=== PATIENT | female | born 1970 | race Native Hawaiian/Other Pacific Islander ===

== ENCOUNTER 2017-08-25 18:22 | Emergency (ER) | payer OTHER ==
[~2017-08-25] VITALS: Ht 154.9 cm; Wt 99.8 kg
[~2017-08-25 18:22] MED LIST: HYDR50CA21 PO
[2017-08-25 19:57] LABS: PLATELET COUNT 217 K/uL (152-353)
[2017-08-25 20:06] LABS: POTASSIUM 3.3 mmol/L (3.6-5.2)
[2017-08-25 20:43] VITALS: BP 118/74; TEMP 97.9
== END 2017-08-25 20:44 | disposition home or self-care (01) ==
LOC: ED 18:22
PROVIDERS: Specialist
DX: M79.1 Myalgia (principal)
CPT/HCPCS: 36415; 80048; 84550; 85027; 85651; 99283

== ENCOUNTER 2019-01-18 15:18 | Emergency (ER) | payer OTHER ==
[~2019-01-18] VITALS: Ht 154.9 cm; Wt 117.5 kg
[2019-01-18 15:31] VITALS: TEMP 97.7
[2019-01-18 16:02] LABS: PLATELET COUNT 293 K/uL (152-353)
[2019-01-18 16:07] LABS: POTASSIUM 3.9 mmol/L (3.6-5.2); SODIUM 139 mmol/L (136-145)
[2019-01-18 17:20] VITALS: BP 133/60
== END 2019-01-18 17:20 | disposition home or self-care (01) ==
LOC: ED 15:18
PROVIDERS: Emergency Medicine
DX: R10.9 Unspecified abdominal pain (principal); K58.0 Irritable bowel syndrome with diarrhea; R14.3 Flatulence
CPT/HCPCS: 36415; 80053; 81000; 81025; 82150; 83690; 84484; 85027; 96374; 96375; 99284; J2270; J2405

== ENCOUNTER 2019-07-17 13:18 | Emergency (ER) | payer OTHER ==
[~2019-07-17] VITALS: Ht 154.9 cm; Wt 115.7 kg
[2019-07-17] MEDS ORDERED: TRAMADOL HYDROC50 MG PO (13:48)
[2019-07-17] MEDS ORDERED: OXYC5TAB53 PO (13:49)
[2019-07-17] MEDS ORDERED: IBU600 MG PO (13:49)
[2019-07-17 14:13] LABS: PLATELET COUNT 234 K/uL (152-353)
[2019-07-17 14:18] LABS: POTASSIUM 3.9 mmol/L (3.6-5.2)
[2019-07-17 16:06] VITALS: BP 135/69; TEMP 98.1
== END 2019-07-17 16:06 | disposition home or self-care (01) ==
LOC: ED 13:18
PROVIDERS: Family Medicine
DX: M51.36 Other intervertebral disc degeneration, lumbar region (principal); M79.2 Neuralgia and neuritis, unspecified; R73.9 Hyperglycemia, unspecified
CPT/HCPCS: 80053; 81000; 85027; 96372; 99283; J1885

== ENCOUNTER 2020-04-18 04:40 | Emergency (ER) | payer OTHER ==
[~2020-04-18] VITALS: Ht 144.8 cm; Wt 120.2 kg
[~2020-04-18 04:40] MED LIST changes: +IBU600 MG PO; +OXYC5TAB53 PO; +TRAMADOL HYDROC50 MG PO
[2020-04-18 06:10] VITALS: BP 136/56; TEMP 98.5
== END 2020-04-18 06:10 | disposition home or self-care (01) ==
LOC: ED 04:40
PROC: 2W3QX1Z Immobilization of Right Lower Leg using Splint (ICD-10-PCS; principal; 2020-04-18)
DX: S93.491A Sprain of other ligament of right ankle, initial encounter (principal); S93.691A Other sprain of right foot, initial encounter
CPT/HCPCS: 96372; 99283; J1885

== ENCOUNTER 2021-12-08 18:37 | Emergency (ER) | payer OTHER ==
[~2021-12-08] VITALS: Ht 144.8 cm; Wt 119.8 kg
[2021-12-08 20:28] LABS: PLATELET COUNT 211 K/uL (152-353)
[2021-12-08 20:37] LABS: POTASSIUM 3.8 mmol/L (3.6-5.2)
[2021-12-08 21:10] LABS: PARTIAL THROMBOPLASTIN TIME 26.4 SECONDS (24.5-33.6)
[2021-12-08 22:45] VITALS: BP 110/81; TEMP 98.1
== END 2021-12-08 22:50 | disposition home or self-care (01) ==
LOC: ED 18:37
PROVIDERS: Hospitalist
DX: R07.89 Other chest pain (principal); R07.81 Pleurodynia
CPT/HCPCS: 36415; 80053; 82550; 83880; 84484; 85027; 85610; 85730; 93005; 96374; 96375; 99284; J1885; J2405; Q9963